=== PATIENT | male | born 1945 | race Caucasian/White ===

== ENCOUNTER → 2017-02-19 | Outpatient (REF) | payer MEDICARE, BC ==
[2017-02-19 16:08] LABS: TOTAL PROTEIN 7.1 GM/DL (6.4-8.2)
[2017-02-19 16:16] LABS: FOLATE > 24.0 NG/ML (>5.4); VITAMIN B12 LEVEL 767 PG/ML (247-911)
[2017-02-24 09:13] LABS: ALBUMIN % 61.7 % (55.8-66.1)
[2017-02-24 09:14] LABS: ALBUMIN 4.38 GM/DL (3.29-5.55); GAMMA GLOBULIN % 11.5 % (11.1-18.8)
== END ==
LOC: M LABNEURO 15:09
PROVIDERS: ATTEND Psychiatry & Neurology Neurology
DX: E11.9 Type 2 diabetes mellitus without complications (principal); G62.9 Polyneuropathy, unspecified; Z79.899 Other long term (current) drug therapy

== ENCOUNTER → 2018-05-17 | Outpatient (CLI) | payer MEDICARE, BC | LOC: M RAD 06:55 | DX: I71.4 Abdominal aortic aneurysm, without rupture (principal) | CPT/HCPCS: 76775 ==

== ENCOUNTER → 2018-12-03 | Outpatient (CLI) | payer MEDICARE, BC ==
--- NOTE | 2018-12-03 11:49 | REP ---
Abdominal aortic sonography: History: Abdominal aortic aneurysm without rupture. Findings: Incidental note is made of a left renal cysts. These include a medial cyst 4.4 x 3.6 x 4.3 cm, a medial cyst 4.8 x 3.7 x 4.5 cm, and a mid lateral cyst measuring 7.9 x 5.0 x 6.2 cm. The abdominal aorta measures 2.6 x 2.7 cm in AP by transverse dimension respectively at the level of the main renal artery origins. At mid aorta the dimensions are 3.1 x 3.3 cm. The distal aorta measures 1.9 x 2.2 cm. There is a 3.8 x 4.3 cm, AP by transverse, abdominal aortic aneurysm 5.7 cm in length in the infrarenal segment. The right and left common iliac arteries are normal in AP dimension each measuring 1.0 cm. The aneurysm does not appear to extend into the common iliac arteries. Impression: 3.8 cm infrarenal abdominal aortic aneurysm. Atherosclerotic changes. Incidental note is made of multiple left renal cysts. Dimensions obtained by previous sonography for the abdominal aortic aneurysm were 4.3 cm AP x 3.9 cm right to left. Electronically Signed by Filemon Carranza MD 12/03/2018 12:56 P
== END ==
LOC: M RAD 09:57
PROVIDERS: ATTEND Surgery Vascular Surgery
DX: I71.4 Abdominal aortic aneurysm, without rupture (principal); N28.1 Cyst of kidney, acquired

== ENCOUNTER → 2019-07-07 | Outpatient (CLI) | payer MEDICARE, BC ==
--- NOTE | 2019-07-07 09:56 | REP ---
ULTRASOUND ABDOMINAL AORTA: Real-time sonographic evaluation of the abdominal aorta are performed. Proximally, the abdominal aorta measures 2.7 cm in maximum AP dimension, at the level of the renal artery is 2.2 cm, and in the mid aspect 2.5 cm and distally 3.9 cm. There is fusiform aneurysm dilatation of the distal abdominal aorta 4.0 x 3.9 cm extending for a length of approximately 5.7 cm. This is below the level of the renal arteries. The common iliac arteries are slightly ectatic, right measuring 1.2 cm and left 1.3 cm in maximum AP dimension. There is moderate atherosclerotic plaquing diffusely throughout the abdominal aorta. IMPRESSION: Fusiform aneurysm of infrarenal abdominal aorta essentially unchanged when compared to prior study 12/03/2018. Electronically Signed by Lg Gavin MD 07/08/2019 09:13 A
== END ==
LOC: M RAD 08:39
PROVIDERS: ATTEND Physician Assistant
DX: I71.4 Abdominal aortic aneurysm, without rupture (principal)

== ENCOUNTER → 2019-07-20 | Outpatient (CLI) | payer MEDICARE, BC ==
[2019-07-20 10:51] LABS: BASO % 0.3 % (0.0-1.0); EOS # 0.1 10^3/uL (0.0-0.5); EOS % 1.6 % (0.0-3.0); HEMATOCRIT 40.4 % (42.0-52.0); HEMOGLOBIN 13.7 g/dl (13.5-17.5); LYMPH # 1.2 10^3/uL (1.5-5.0); LYMPH % 15.2 % (24.0-44.0); MEAN CORPUSCULAR HEMOGLOBIN 31.8 pg (27.0-33.0); MEAN CORPUSCULAR HGB CONC 33.9 g/dl (32.0-36.5); MEAN CORPUSCULAR VOLUME 93.7 fl (80.0-96.0); MONO # 0.5 10^3/uL (0.0-0.8); MONO % 6.9 % (0.0-5.0); NEUTROPHILS # 5.7 10^3/uL (1.5-8.5); NEUTROPHILS % 75.2 % (36.0-66.0); PLATELET COUNT, AUTOMATED 266 10^3/uL (150-450); RED BLOOD COUNT 4.31 10^6/uL (4.30-6.10); WHITE BLOOD COUNT 7.6 10^3/uL (4.0-10.0)
[2019-07-20 11:21] LABS: BLOOD UREA NITROGEN 12 MG/DL (7-18); CALCIUM LEVEL 9.5 MG/DL (8.8-10.2); CARBON DIOXIDE LEVEL 32 MEQ/L (21-32); CHLORIDE LEVEL 91 MEQ/L (98-107); CREATININE FOR GFR 0.74 MG/DL (0.70-1.30); GLOMERULAR FILTRATION RATE > 60.0 (>42); GLUCOSE, FASTING 99 MG/DL (70-100); POTASSIUM SERUM 4.4 MEQ/L (3.5-5.1); SODIUM LEVEL 129 MEQ/L (136-145)
== END ==
LOC: M LAB 09:54
PROVIDERS: ATTEND Physician Assistant
DX: I70.203 Unspecified atherosclerosis of native arteries of extremities, bilateral legs (principal)

== ENCOUNTER → 2019-07-29 | Outpatient (CLI) | payer MEDICARE, BC ==
--- NOTE | 2019-07-29 15:13 | REP ---
BILATERAL LOWER EXTREMITY DUPLEX DOPPLER ARTERIAL ULTRASOUND: Real-time ultrasound evaluation and duplex Doppler interrogation of the bilateral lower extremity arterial systems is performed. FLYNN right 0.65 and left 0.62. There is severe plaquing diffusely bilaterally in the lower extremity arterial systems. Both distal superficial femoral arteries are occluded with reconstitution of the popliteal arteries bilaterally. There is stenosis of the proximal profunda arteries bilaterally. There is stenosis of the proximal left superficial artery and other focal stenosis of the mid left superficial femoral artery. There is mild dilatation of the right popliteal artery up to 1.6 cm in diameter. Multiple collateral arterial vessels are seen in the thighs bilaterally. The distal right posterior tibial artery is occluded at the level of the medial malleolus. Fluid is seen posterior to the right medial malleolus which may be related to joint fluid. Complex cystic structure in the posteromedial distal left calf measures 6.0 x 2.1 x 2.8 cm and appears to surround the tendon. This represents a cyst of the tendon sheath or may be related to prior hematoma or musculotendinous tear. Triphasic wave forms are seen in the common femoral and profunda arteries bilaterally as well as in the proximal right SFA. Monophasic wave forms are seen distal to that bilaterally. RIGHT LEFT Common femoral artery 87.4 cm/s 87.6 cm/s Profunda 186 cm/s 202 cm/s Proximal SFA 72.8 cm/s 435 cm/s Mid SFA 22.8 cm/s 50 cm/s Distal SFA occluded occluded Popliteal 5 cm/s 47 cm/s Proximal HERIBERTO 16.9 cm/s 15.2 cm/s Tibioperoneal trunk 13.6 cm/s 17.4 cm/s Proximal STUCCO PLASTERER 12.2 cm/s 11.9 cm/s Distal STUCCO PLASTERER 4 cm/s occluded 8.4 cm/s Distal HERIBERTO 12.7 cm/s 23.8 cm/s IMPRESSION: Severe plaquing bilaterally. There is occlusion of the distal superficial femoral arteries bilaterally with reconstitution of the popliteal arteries. Focal stenosis in the proximal as well as in the mid left SFA. Occlusion distal right STUCCO PLASTERER. Stenosis bilateral profunda arteries. Complex cystic structure along a tendon and muscle in the distal posteromedial left calf may represent a complex cyst in the soft-tissues versus an old hematoma or musculotendinous tear. Electronically Signed by Lg Gavin MD 07/29/2019 03:50 P
== END ==
LOC: M RAD 12:22
PROVIDERS: ATTEND Physician Assistant
DX: I74.3 Embolism and thrombosis of arteries of the lower extremities (principal)

== ENCOUNTER → 2019-08-09 | Outpatient (CLI) | payer MEDICARE, BC ==
[2019-08-09 12:32] LABS: HEMATOCRIT 43.7 % (42.0-52.0); HEMOGLOBIN 14.3 g/dl (13.5-17.5); MEAN CORPUSCULAR HEMOGLOBIN 31.5 pg (27.0-33.0); MEAN CORPUSCULAR HGB CONC 32.7 g/dl (32.0-36.5); MEAN CORPUSCULAR VOLUME 96.3 fl (80.0-96.0); PLATELET COUNT, AUTOMATED 292 10^3/uL (150-450); RED BLOOD COUNT 4.54 10^6/uL (4.30-6.10); WHITE BLOOD COUNT 7.8 10^3/uL (4.0-10.0)
[2019-08-09 13:06] LABS: BLOOD UREA NITROGEN 11 MG/DL (7-18); CALCIUM LEVEL 9.1 MG/DL (8.8-10.2); CARBON DIOXIDE LEVEL 32 MEQ/L (21-32); CHLORIDE LEVEL 91 MEQ/L (98-107); CREATININE FOR GFR 0.78 MG/DL (0.70-1.30); GLOMERULAR FILTRATION RATE > 60.0 (>42); GLUCOSE, FASTING 93 MG/DL (70-100); POTASSIUM SERUM 4.2 MEQ/L (3.5-5.1); SODIUM LEVEL 130 MEQ/L (136-145)
== END ==
LOC: M LAB 11:43
PROVIDERS: ATTEND Physician Assistant
DX: I71.4 Abdominal aortic aneurysm, without rupture (principal); I70.203 Unspecified atherosclerosis of native arteries of extremities, bilateral legs

== ENCOUNTER → 2019-09-19 | Outpatient (CLI) | payer MEDICARE, BC ==
[~2019-09-19] MED LIST: AMIT10TA PO; AMLO5TAB6 PO; ASPI81TA26 PO; BENA20TA6 PO; CYAN500T8 PO; HEPARIN 1,000 UNITS/ML 10ML VIAL (FOR RADIOLOGY& DIALYSIS ONLY) As Ordered ONE; ISOVUE-300 61% 50ML VIAL (Q9967) As Ordered ONE; LIDOCAINE 1% MDV 20ML VIAL As Ordered ONE; MIDAZOLAM INJ 2 MG/2 ML VIAL (J2250) As Ordered ONE; SIMV40TA20 PO; VITA100066 PO; VITATAB73 PO; XALA0.007 OU; fentaNYL 100 MCG/2 ML INJECTION (J3010) As Ordered ONE
--- NOTE | 2019-09-19 09:31 | ROOPDOC ---
[facility] Report Of Operation Report of Operation DATE OF PROCEDURE: 09/19/19 PREPROCEDURE DIAGNOSES: Atherosclerosis of the [place] vessels with lifestyle limiting claudication POSTPROCEDURE DIAGNOSES: Same PROCEDURE: 1. Ultrasound-guided access right common femoral artery 2. Aortoiliofemoral arteriogram 3. Selection left common femoral artery with left lower extremity runoff 4. Angioplasty left common femoral and superficial femoral artery with 5 x 200 [place] balloon and completion arteriogram 5. Right lower extremity runoff through the existing right common femoral artery sheath 6. Mynx closure right common femoral artery SURGEON: Simran Carr MD ANESTHESIA: Local anesthesia 8 mL lidocaine. Moderate intravenous conscious sedation was supervised by Dr. Carr. The patient was independently monitored by registered nurse and signed to the Department of radiology using automated blood pressure, EKG, and pulse oximetry. The detailed sedation record is permanently stored in the hospital information system. The following is the brief sedation record: Start time: 07:38, stop time: 08:41, Versed 1 mg IV, fentanyl 25 g IV. INDICATION FOR PROCEDURE: Mr. Sweet is a very pleasant 74-year-old gentleman with a long-standing heavy tobacco abuse history, and severe lifestyle limiting short distance claudication of the bilateral lower extremities with long recovery time, left lower extremity worse than the right. Risks benefits and alternatives to an arteriogram with potential intervention were explained to the patient. He is agreeable to proceed. Informed consent was obtained. INTERPRETATION: 1. Infrarenal known AAA noted on aortoiliofemoral arteriogram today with slight aneurysmal dilation of the common iliac arteries bilaterally. There is heavy calcification of the bilateral iliac systems but they are patent. Significant ectasia but no focal stenosis is noted. 2. The left common femoral artery has heavy bulky calcified plaque that is near occlusive in some areas. The origin of the profunda also has heavy calcified bulky plaque that is near occlusive. Distal to this, there is trickle flow through the SFA with heavy bulky plaque throughout, and complete occlusion at 's canal with reconstitution from collaterals from the profunda to the popliteal artery. He has decent 3 vessel runoff to the foot. There is some tibial ectasia, but flow is relatively intact. 3. After angioplasty of the common femoral artery and superficial femoral artery on the left, there is a moderate improvement in flow to the mid SFA, but we were not able to cross the occlusion at 's canal and therefore this is only a limited improvement. No extravasation noted on completion arteriogram. 4. The right common femoral artery also has heavy calcified plaque as well as the origin the profunda, but is not as severe as the left. There is heavy calcification throughout the right SFA and occlusion of the distal right SFA with reconstitution above the knee in the aneurysmal popliteal artery. The tibial runoff three-vessel appears intact. REPORT OF OPERATION: Patient was brought to the angiographic suite in stable condition and placed supine on the fluoroscopic table. His bilateral groins were prepped and draped in a sterile fashion. A timeout was performed. Sedation was administered without complication. Local anesthesia was administered to the skin and subcutaneous tissue over the right common femoral artery and a microneedle was used to access the artery. A wire was passed through this access under fluoroscopic guidance the needle was removed and a micro-sheath was placed. Glidewire was advanced through this into the central system and the sheath was exchanged for 6 [place] sheath and flushed with saline. We advanced a Xander catheter into the distal aorta and aortoiliofemoral arteriograms were performed with oblique views. There is a known 4 cm infrarenal abdominal aortic aneurysm, noted on this imaging, and some mild aneurysmal dilation of the proximal iliac arteries which is also noted. The iliac vessels are very ectatic and calcified but not significantly stenotic. Inflow is intact. We then went up and over the bifurcation with a contra catheter Glidewire. This was challenging due to the ectasia and calcification in the vessels. However, we were able to get up and over. We advanced the wire into the origin of the superficial femoral artery and the catheter to the common femoral artery and left lower extremity runoff was performed. Please see interpretation above. We tried for quite some time to cross through into the superficial femoral artery, and eventually were able to get to the midportion of the artery. We advanced a 5 x 200 balloon over the wire into the SFA and angioplasty the common femoral artery to mid SFA with a 5 x 200 balloon. Following this, there was some mild improvement and in inflow through the SFA, but there still is a chronic total occlusion distally that we could not cross. I'm hopeful that this will provide at least a mild improvement in the patient's symptoms, but he will definitely need further intervention to relieve his claudication. I discussed with him that we did not have further interventional options today, but I would like to bring him back to clinic to discuss an open procedure for common femoral endarterectomy and a femoral to below-knee popliteal bypass. Will obtain a vein mapping today. We then performed a right lower extremity runoff through the existing sheath as I suspected similar disease process and limited options for endovascular intervention. Please see interpretation above This concluded our procedure and we deployed and Mynx closure device and good hemostasis was noted. Pressure was held for 10 jeannette mendez and the patient was taken to recovery in stable condition. There were no comp locations knee tolerated the sedation and the procedure well. ESTIMATED BLOOD LOSS: Approximately 5 mL. COMPLICATIONS: None. PLAN: Okay for patient to resume home medications. We will see the patient back in clinic in a week or two to check his right groin access and discuss options for surgical intervention. The intervention provided today will likely only provide a small amount of improvement in the left lower extremity. The patient requires a left common femoral and profunda endarterectomy and a femoral to below-knee popliteal bypass. On the right side, I would recommend a similar procedure but would add ligation of the popliteal artery since it is aneurysmal. The patient will need cardiac clearance. He has cut back on his smoking, but should consider quitting smoking for long-term success of any intervention we provide. He has been extensively counseled. SIMRAN CARR MD Sep 19, 2019 09:31
[2019-09-19 12:27] VITALS: BP 124/69
== END ==
LOC: M IRPRO 06:22
PROVIDERS: ATTEND Surgery Vascular Surgery
DX: Z01.818 Encounter for other preprocedural examination (principal); I70.213 Atherosclerosis of native arteries of extremities with intermittent claudication, bilateral legs; I70.92 Chronic total occlusion of artery of the extremities; I71.4 Abdominal aortic aneurysm, without rupture; F17.200 Nicotine dependence, unspecified, uncomplicated
CPT/HCPCS: 37224; 75716; 93970; 99152; 99153; C1725; C1760; C1769; C1887; C1894; J2250; J3010; Q9967

== ENCOUNTER → 2019-11-21 | Outpatient (CLI) | payer MEDICARE, BC ==
[~2019-11-21] MED LIST changes: -HEPARIN 1,000 UNITS/ML 10ML VIAL (FOR RADIOLOGY& DIALYSIS ONLY) As Ordered ONE; -ISOVUE-300 61% 50ML VIAL (Q9967) As Ordered ONE; -LIDOCAINE 1% MDV 20ML VIAL As Ordered ONE; -MIDAZOLAM INJ 2 MG/2 ML VIAL (J2250) As Ordered ONE; +PROC2.5C PR; +VITAD1000T PO; -fentaNYL 100 MCG/2 ML INJECTION (J3010) As Ordered ONE
--- NOTE | 2019-11-21 11:07 | PFTRPT ---
Visit Date: 11/21/2019 Referring Doctor: Arsh Simons MD Height: 68.50 Inches Weight: 205.00 Lbs BSA: 2.08 Diagnosis: J44.9 Pre and postbronchodilator study of excellent technical quality. Forced vital capacity borderline. FEV1 out of proportion. Obstructive index is therefore reduced. Expiratory limb of the flow volume loop does suggest significant flow rate limitation. Favorable bronchodilator response is identified. Total lung capacity is elevated. Residual volume consistent with air trapping. Diffusing capacity significantly reduced, but does correct for alveolar volume. Hemoglobin mildly reduced at 11. 3. Airways resistance and conductance are normal. IMPRESSION: At least mild obstructive ventilatory impairment with underlying air trapping. Favorable bronchodilator response. Underlying anemia with reduction of diffusing capacity probably on that basis. Please correlate clinically. MTDD
== END ==
LOC: M CARPUL 10:17
PROVIDERS: ATTEND Internal Medicine Cardiovascular Disease
DX: J44.9 Chronic obstructive pulmonary disease, unspecified (principal)

== ENCOUNTER → 2019-11-29 | Outpatient (CLI) | payer MEDICARE, BC ==
--- NOTE | 2019-11-24 16:27 | HPEPDOC ---
[facility] Medical History & Physical Date of Admission Nov 29, 2019 Date of Service: Nov 29, 2019 History and Physical Vascular surgery. Dr. Carr HPI. The patient is a 74-year-old male with bilateral lower extremity peripheral arterial disease with SFA occlusion, right popliteal aneurysm, bilateral lifes tyle limiting claudication left than right. Plan is for left common femoral endarterectomy and profundoplasty as per Dr. Carr 11/29/2019. Cardiac clearance is obtained, see copy placed on the chart. Medical preoperative clearance is obtained, see copy placed on the chart. PMHx: Hypertension Dyslipidemia PAD Tobacco use Glaucoma Obesity. BMI 32.1. History of chronic alcohol use. AAA, ultrasound 07/16 measuring 4.0 cm maximal AP diameter. PSHX: Umbilical hernia repair Colonoscopy Lower extremity angiogram SOCHX: Tobacco use: One to 2 packs per day ETOH: 3-6 beers per day FAMHX: Father secondary to prostate cancer. Mother secondary to dementia ROS: As noted in HPI, otherwise 11pt ROS of systems reviewed and unremarkable. PE: GEN: 74 yo M, appears stated age. Well-nourished, well developed. No acute distress. Alert and oriented x 3. Pleasant, interactive. HEENT: Normocephalic, atraumatic. Moist mucous membranes. CHEST: Regular rate and rhythm, +S1, +S2 LUNGS: Clear to auscultation bilaterally. ABD: Round, soft, non-tender, non-distended. EXT: No lower extremity edema appreciated. Monophasic DP/PT bilaterally. SKIN: [place], dry, warm. No wounds. NEURO: Alert and oriented x 3. Cranial nerves III-XII are intact. No focal deficits appreciated. A&P: 1. Severe PAD with SFA occlusions, right popliteal aneurysm, lifestyle limiting claudication with plan for left common femoral endarterectomy and profundoplasty 11/29/[address] Carr. Please refer to medical and cardiac preoperative clearance placed on the chart. NPO. CBC, CMP, PT/PTT, type and screen preoperatively. Continue statin daily. Continue aspirin 81 mg daily. Ancef 2 g IV preoperatively. 2. History of alcohol use. As recommended by medical clearance, consider postoperative management for history of alcohol use, consider CIWA scoring. 3. Tobacco use. The patient has been strongly encouraged to quit smoking. Potential health hazards are discussed with the patient including the advancement of atherosclerotic disease. I have discussed the continuing to smoke associated with progression of disease, greater risk of complications and poor response to therapy. I have reviewed with the patient that revascularization is likely to fail if the patient continues to smoke. 4. AAA. The patient has known history of abdominal aortic aneurysm measuring 4.0 cm on last ultrasound June 2019. Vital Signs Admission vital signs pending. Laboratory Data Labs 24H Admission labs pending. Home Medications Scheduled Amlodipine Besylate (Amlodipine Besylate) 5 Mg Tablet, 5 MG PO DAILY Aspirin (Aspirin EC) 81 Mg Tablet.dr, 81 MG PO DAILY Benazepril/Hydrochlorothiazide (Benazepril-Hctz 20-25 mg Tab) 1 Each Tablet, 1 TAB PO DAILY Cholecalciferol (Vitamin D3) (Vitamin D3) 1,000 Unit Tablet, 1,000 UNITS PO DAILY Cyanocobalamin (Vitamin B-12) (Vitamin B-12) 500 Mcg Tablet, 500 MCG PO DAILY Latanoprost (Xalatan) 0.005% 2.5ML Drops, 1 DROP OU DAILY Simvastatin (Simvastatin) 40 Mg Tablet, 40 MG PO DAILY Vitamin B Complex (Vitamin B Complex) 1 Each Tablet, 1 TAB PO DAILY Scheduled PRN Hydrocortisone (Proctosol-Hc) 28.35 Gm Crm.pe.horacio, 0 [place] PRN PRN for HEMORRHOIDS Allergies Coded Allergies: No Known Allergies (Unverified , 11/24/19) A-FIB/CHADSVASC A-FIB History Current/History of A-Fib/PAF?: No Current PO Anticoag Therapy: No Ana Silvestre Nov 24, 2019 16:27
[~2019-11-29] VITALS: Ht 170.2 cm; Wt 91.2 kg
[~2019-11-29] MED LIST changes: +BENA20TA7 PO; +BUPIVACAINE HCL 0.25% 30 ML VIAL As Ordered ONE; +BUPIVACAINE/EPIN 0.25% 30 ML VIAL As Ordered ONE; +HEPARIN SOD (PORCINE) 5000 UNITS/ML VIAL (J1644 PER 1000UNITS) As Ordered ONE; +LIDOCAINE 2% INJ 100 MG/5 ML SDV (FOR ANES.) As Ordered ONE; +LR 1,000 ML IV ONE; +MIDAZOLAM INJ 2 MG/2 ML VIAL (J2250) As Ordered ONE; +ONDANSETRON 4MG/2ML VIAL (J2405) As Ordered ONE; +ROCURONIUM BROMIDE 50 MG/5 ML VIAL As Ordered ONE; +THROMBIN SOLN 5,000 UNITS VIAL As Ordered ONE; +ceFAZolin SOD 2 GM in IV 1 EA IV ONE; +dexameTHASONE 4 MG/ML 1ML VIAL (J1100) As Ordered ONE; +fentaNYL 250 MCG/5 ML INJECTION (J3010) As Ordered ONE; +propofoL 200 MG/20 ML VIAL As Ordered ONE
[2019-11-29 12:02] LABS: HEMATOCRIT 42.1 % (42.0-52.0); HEMOGLOBIN 14.7 g/dl (13.5-17.5); MEAN CORPUSCULAR HEMOGLOBIN 31.2 pg (27.0-33.0); MEAN CORPUSCULAR HGB CONC 34.9 g/dl (32.0-36.5); MEAN CORPUSCULAR VOLUME 89.4 fl (80.0-96.0); PLATELET COUNT, AUTOMATED 345 10^3/uL (150-450); RED BLOOD COUNT 4.71 10^6/uL (4.30-6.10)
[2019-11-29 12:11] LABS: INR 1.03; PROTHROMBIN TIME 13.2 SECONDS (11.8-14.0)
[2019-11-29 12:18] VITALS: BP 139/75
[2019-11-29 12:39] LABS: BLOOD UREA NITROGEN 7 MG/DL (7-18); CALCIUM LEVEL 9.1 MG/DL (8.8-10.2); CARBON DIOXIDE LEVEL 33 MEQ/L (21-32); CHLORIDE LEVEL 87 MEQ/L (98-107); CREATININE FOR GFR 0.76 MG/DL (0.70-1.30); GLOMERULAR FILTRATION RATE > 60.0 (>42); GLUCOSE, FASTING 111 MG/DL (70-100); POTASSIUM SERUM 3.7 MEQ/L (3.5-5.1); SODIUM LEVEL 125 MEQ/L (136-145)
[2019-11-29 14:18] LABS: BLOOD UREA NITROGEN 7 MG/DL (7-18); CALCIUM LEVEL 8.8 MG/DL (8.8-10.2); CARBON DIOXIDE LEVEL 30 MEQ/L (21-32); CHLORIDE LEVEL 89 MEQ/L (98-107); CREATININE FOR GFR 0.61 MG/DL (0.70-1.30); GLOMERULAR FILTRATION RATE > 60.0 (>42); GLUCOSE, FASTING 103 MG/DL (70-100); POTASSIUM SERUM 3.5 MEQ/L (3.5-5.1); SODIUM LEVEL 125 MEQ/L (136-145)
== END ==
LOC: UNDOADMIN 11:14 → M OR 11:14 → M LAB 11:14 → EDSTATUS 13:00
PROVIDERS: ATTEND Surgery Vascular Surgery
DX: I25.10 Atherosclerotic heart disease of native coronary artery without angina pectoris (principal); Z53.09 Procedure and treatment not carried out because of other contraindication; R79.9 Abnormal finding of blood chemistry, unspecified; E78.5 Hyperlipidemia, unspecified; E66.9 Obesity, unspecified; Z68.32 Body mass index [BMI] 32.0-32.9, adult
CPT/HCPCS: 36415; 80048; 85027; 85610; 85730; 86850; 86900; 86901; J1644

== ENCOUNTER → 2020-02-16 | Outpatient (CLI) | payer MEDICARE, BC ==
[~2020-02-16] MED LIST changes: -BUPIVACAINE HCL 0.25% 30 ML VIAL As Ordered ONE; -BUPIVACAINE/EPIN 0.25% 30 ML VIAL As Ordered ONE; -HEPARIN SOD (PORCINE) 5000 UNITS/ML VIAL (J1644 PER 1000UNITS) As Ordered ONE; -LIDOCAINE 2% INJ 100 MG/5 ML SDV (FOR ANES.) As Ordered ONE; -LR 1,000 ML IV ONE; -MIDAZOLAM INJ 2 MG/2 ML VIAL (J2250) As Ordered ONE; -ONDANSETRON 4MG/2ML VIAL (J2405) As Ordered ONE; -ROCURONIUM BROMIDE 50 MG/5 ML VIAL As Ordered ONE; -THROMBIN SOLN 5,000 UNITS VIAL As Ordered ONE; -ceFAZolin SOD 2 GM in IV 1 EA IV ONE; -dexameTHASONE 4 MG/ML 1ML VIAL (J1100) As Ordered ONE; -fentaNYL 250 MCG/5 ML INJECTION (J3010) As Ordered ONE; -propofoL 200 MG/20 ML VIAL As Ordered ONE
[2020-02-16 14:38] LABS: BLOOD UREA NITROGEN 9 MG/DL (7-18); CREATININE FOR GFR 0.81 MG/DL (0.70-1.30); GLOMERULAR FILTRATION RATE > 60.0 (>42)
== END ==
LOC: M LAB 13:34
PROVIDERS: ATTEND Surgery Vascular Surgery
DX: Z01.818 Encounter for other preprocedural examination (principal); I71.4 Abdominal aortic aneurysm, without rupture

== ENCOUNTER → 2020-02-23 | Outpatient (CLI) | payer MEDICARE, BC ==
[~2020-02-23] MED LIST changes: +ISOVUE-370 76% 100ML VIAL As Ordered ONE
--- NOTE | 2020-02-23 15:52 | REP ---
CT CHEST WITH IV CONTRAST: TECHNIQUE: Axial contrast-enhanced images from the thoracic inlet to the upper abdomen using 100 mL Isovue-370 intravenous contrast material with multiplanar reformations. Thoracic aorta demonstrates mild atherosclerotic calcification. There is no aneurysm or dissection. The heart is normal in size. There is no mediastinal, hilar, or chest wall lymphadenopathy. There is no pleural or pericardial effusion. There are calcified subcarinal and right hilar lymph nodes. There is no pleural or pericardial effusion. A few calcified granulomas are seen in the right lung. There is mild interstitial fibrotic change bilaterally more so on the right. There is an area of wedge-shaped consolidative opacity inferiorly in the right middle lobe, which probably represents focal atelectasis although underlying infiltrate cannot totally be excluded. IMPRESSION: No evidence of thoracic aorta aneurysm or dissection. Evidence of prior granulomatous disease. Mild fibrotic changes of the lungs. Focal wedge-shaped consolidation medial segment right middle lobe probably represents mild focal atelectasis, although underlying infiltrate cannot be excluded. Electronically Signed by Lg Gavin MD 02/23/2020 05:07 P
--- NOTE | 2020-02-23 16:03 | REP ---
CT ABDOMEN WITH IV CONTRAST: Thee is moderate atherosclerotic calcification of the abdominal aorta. There are two renal arteries bilaterally. There is a fusiform aneurysm of the distal abdominal aorta which begins at the origin of the more inferior left renal artery. This extends for a length of approximately 7 cm. Maximum AP diameter is approximately 4.9 cm, in transverse 4.0 cm. There is no dissection There is moderate atherosclerotic calcification of the common iliac arteries with mild ectasia of the right common iliac artery 1.3 cm in diameter and left 1.4 cm in diameter. There is no periaortic adenopathy. Calcified granulomas are seen in the liver and spleen. There are a few scattered liver cysts present, the largest is in the dome of the lover measuring 2.2 cm in diameter. There are multiple calcified granulomas of the spleen, which is normal in size. The adrenal glands demonstrate mild thickening on the left with no discrete nodule. The pancreas is unremarkable. Two dominant cysts are seen of the upper and lower poles of the right kidney, larger is in the lower pole and is exophytic measuring 4.6 cm in diameter. There is a dominant cyst in the left kidney upper pole with three large cysts of the lower pole, largest is posterior and measures 6.8 cm in diameter. There is no hydronephrosis. No bowel thickening is seen. There is no free air or free fluid. There are degenerative changes of the spine. IMPRESSION: Fusiform aneurysm of the distal abdominal aorta as discussed above. Fusiform aneurysm begins at the more inferior of the two left renal arteries. Liver and bilateral renal cysts. Calcified granulomas liver and spleen Electronically Signed by Lg Gavin MD 02/23/2020 05:07 P
== END ==
LOC: M RAD 13:34
PROVIDERS: ATTEND Surgery Vascular Surgery
DX: I71.4 Abdominal aortic aneurysm, without rupture (principal); I70.0 Atherosclerosis of aorta; J84.10 Pulmonary fibrosis, unspecified; K76.89 Other specified diseases of liver; N28.1 Cyst of kidney, acquired; K75.3 Granulomatous hepatitis, not elsewhere classified
CPT/HCPCS: 71260; 74160; Q9967

== ENCOUNTER → 2020-09-17 | Outpatient (CLI) | payer MEDICARE, BC ==
[~2020-09-17] MED LIST changes: +AMLO1TAB24 PO; -AMLO5TAB6 PO; +CYAN500T14 PO; -CYAN500T8 PO; +D31000TA2 PO; -ISOVUE-370 76% 100ML VIAL As Ordered ONE; -VITAD1000T PO
--- NOTE | 2020-09-17 16:20 | REP ---
INDICATION: AAA WITHOUT RUPTURE, CLAUDICATION, U/S FIRST, CT 2ND COMPARISON: None TECHNIQUE: Axial noncontrast images from the lung bases to the pubic symphysis with coronal and sagittal reformations. This CT examination was performed using the following dose reduction techniques: Automated exposure control, adjustment of mA and/or kv according to the patient's size, and use of iterative reconstruction technique. FINDINGS: Extensive atherosclerotic changes to the aorta and branch vessels are again noted and unchanged. Infrarenal abdominal aortic aneurysm is unchanged in appearance and size and again measures approximately 7 cm in craniocaudal length and 4.8 x 4.0 cm maximal AP and transverse diameter. No periaortic inflammatory change or fluid is identified to suggest perforation. Liver demonstrates stable hypodensities measuring up to 2 cm and compatible with cysts. Spleen demonstrates parenchymal calcifications consistent with prior granulomatous disease. Pancreas, gallbladder, and bilateral adrenal glands are normal. Kidneys demonstrate moderate chronic appearing perinephric stranding and bilateral hypodensities compatible with simple and complex cysts measuring up to 4.2 cm along the medial right kidney and 6.8 cm along the inferior pole of the left kidney. The enteric system is without obstruction or acute inflammatory process. Scattered colonic diverticula noted without acute diverticulitis. Pelvis demonstrates normal bladder and prostatomegaly with mass effect on the base of the bladder along with small amount of layering bladder calculi. No ascites. No free air. No adenopathy. Musculoskeletal structures demonstrate degenerative changes without acute osseous abnormality. IMPRESSION: 1. Extensive atherosclerotic changes to the aorta and vasculature along with stable infrarenal abdominal aortic aneurysm measuring approximately 4.8 x 4.0 cm maximal diameter. 2. Hepatic and bilateral renal hypodensities unchanged from prior examination. 3. Prostatomegaly. 4. Further chronic changes as described above. <Electronically signed by Maximo Haji > 09/17/20 [id number]
== END ==
LOC: M RAD 13:57
PROVIDERS: ATTEND Surgery Vascular Surgery
DX: I70.213 Atherosclerosis of native arteries of extremities with intermittent claudication, bilateral legs (principal); I71.4 Abdominal aortic aneurysm, without rupture; N40.0 Benign prostatic hyperplasia without lower urinary tract symptoms